=== PATIENT | female | born 1975 | race Caucasian/White ===

== ENCOUNTER 2018-12-14 05:45 | Day surgery (SDC) | payer OTHER ==
[~2018-12-14 05:45] MED LIST: MULTI-VITAMIN1 EACH PO
[2018-12-14] MEDS ORDERED: Tylenol #3 PO (08:24)
[2018-12-14] MEDS ORDERED: DOXYCYCLINE HY100 M3 PO (08:24)
== END 2018-12-14 14:30 | disposition home or self-care (01) ==
LOC: CIR.AMB 05:45
DX: N84.0 Polyp of corpus uteri (principal); D25.0 Submucous leiomyoma of uterus